=== PATIENT | female | born 1945 | race Caucasian/White ===

== ENCOUNTER → 2016-09-26 | Outpatient (CLI) | payer MEDICARE, BC ==
--- NOTE | 2016-09-26 15:56 | REPMRS ---
Patient History The patient states she had a clinical breast exam in 08/2016. Patient is postmenopausal. Benign US guided breast biopsy of the left breast, August 08, 2015. Benign lumpectomy of the right breast. Digital Woman Screen Mammo: September 26, 2016 - Exam #: [id number] Bilateral CC and MLO view(s) were taken. Technologist: Mary Rose, Technologist Prior study comparison: July 16, 2015, left breast digital mammo diagnostic unilateral, performed at [facility]. July 10, 2015, digital woman screen mammo performed at [facility]. FINDINGS: There are scattered fibroglandular densities. There has been no change in the appearance of the mammogram from the prior studies. There is a 1.7 cm nodule at 12 o'clock in the left breast unchanged from most recent prior mammography, previously noted to be a cyst. Anteriorly in the upper outer quadrant there is a needle biopsy marker clip in the same left breast. In the interval since the prior study, the patient underwent ultrasound-guided needle biopsy by Dr. Mercado with benign results. There is a mild amount of scattered fibroglandular density which is fairly symmetric. There is no interval development of dominant mass, architectural distortion, or clustered microcalcification suggestive of malignancy. ASSESSMENT: BI-RADS/ACR category 2 mammogram. Benign finding(s). Recommendation Routine screening mammogram in 1 year (for women over age 40). This mammogram was interpreted with the aid of an FDA-approved computer-aided dectection system. Electronically Signed By: Darien Daley MD 09/26/16 9131
== END ==
LOC: M WHC 14:39
PROVIDERS: ATTEND Nurse Practitioner Family
DX: Z12.31 Encounter for screening mammogram for malignant neoplasm of breast (principal); Z78.0 Asymptomatic menopausal state; Z12.12 Encounter for screening for malignant neoplasm of rectum; Z92.89 Personal history of other medical treatment
CPT/HCPCS: 82270; 87070; G0101; G0202

== ENCOUNTER → 2016-10-27 | Outpatient (CLI) | payer MEDICARE, BC ==
[2016-10-27 13:40] LABS: FREE T4 1.06 NG/DL (0.76-1.46)
== END ==
LOC: M WUC 10:32
PROVIDERS: ATTEND Family Medicine
DX: E03.9 Hypothyroidism, unspecified (principal)

== ENCOUNTER → 2017-05-29 | Outpatient (REF) | payer MEDICARE, BC ==
[2017-05-29 13:15] LABS: MEAN CORPUSCULAR HEMOGLOBIN 28.6 pg (27.0-33.0); MEAN CORPUSCULAR HGB CONC 32.9 g/dl (32.0-36.5); MEAN CORPUSCULAR VOLUME 86.9 fl (80.0-96.0); RED CELL DISTRIBUTION WIDTH 13.2 % (11.5-14.5)
[2017-05-29 13:41] LABS: ALBUMIN 3.5 GM/DL (3.2-5.2); ALBUMIN/GLOBULIN RATIO 1.03 (1.00-1.93); ALKALINE PHOSPHATASE 82 U/L (45-117); ALT/SGPT 15 U/L (12-78); ANION GAP 8 MEQ/L (8-16); AST/SGOT 11 U/L (15-37); BILIRUBIN,TOTAL 0.5 MG/DL (0.2-1.0); BLOOD UREA NITROGEN 12 MG/DL (7-18); CALCIUM LEVEL 8.9 MG/DL (8.8-10.2); CARBON DIOXIDE LEVEL 25 MEQ/L (21-32); CHLORIDE LEVEL 107 MEQ/L (98-107); CHOLESTEROL LEVEL 178 MG/DL (<200); CREATININE FOR GFR 0.62 MG/DL (0.55-1.02); FREE T4 0.92 NG/DL (0.76-1.46); GLOMERULAR FILTRATION RATE > 60.0 (>39); GLUCOSE, FASTING 94 MG/DL (83-110); POTASSIUM SERUM 4.7 MEQ/L (3.5-5.1); SODIUM LEVEL 140 MEQ/L (136-145); TOTAL PROTEIN 6.9 GM/DL (6.4-8.2); TRIGLYCERIDES LEVEL 93 MG/DL (<150)
== END ==
LOC: M SFHCPLAZ 10:12
PROVIDERS: ATTEND Family Medicine
DX: F32.9 Major depressive disorder, single episode, unspecified (principal); E78.5 Hyperlipidemia, unspecified; E03.9 Hypothyroidism, unspecified
CPT/HCPCS: 80053; 80061; 84439; 84443; 85027; G0463

== ENCOUNTER → 2017-12-15 | Outpatient (CLI) | payer MEDICARE, BC | LOC: M WHC 14:10 | DX: Z01.419 Encounter for gynecological examination (general) (routine) without abnormal findings (principal); Z12.31 Encounter for screening mammogram for malignant neoplasm of breast; R92.8 Other abnormal and inconclusive findings on diagnostic imaging of breast; Z78.0 Asymptomatic menopausal state; N63.21 Unspecified lump in the left breast, upper outer quadrant; M95.9 Acquired deformity of musculoskeletal system, unspecified; Z92.89 Personal history of other medical treatment; Z12.12 Encounter for screening for malignant neoplasm of rectum | CPT/HCPCS: 77067 ==

== ENCOUNTER → 2017-12-21 | Outpatient (CLI) | payer MEDICARE, BC | LOC: M RAD 10:47 | DX: N60.02 Solitary cyst of left breast (principal) | CPT/HCPCS: 76642 ==

== ENCOUNTER → 2018-06-18 | Outpatient (CLI) | payer MEDICARE, BC ==
[2018-06-18 13:44] LABS: ALBUMIN 3.6 GM/DL (3.2-5.2); ALBUMIN/GLOBULIN RATIO 1.16 (1.00-1.93); ALKALINE PHOSPHATASE 104 U/L (45-117); ALT/SGPT 21 U/L (12-78); ANION GAP 5 MEQ/L (8-16); AST/SGOT 11 U/L (7-37); BILIRUBIN,TOTAL 0.5 MG/DL (0.2-1.0); BLOOD UREA NITROGEN 21 MG/DL (7-18); CALCIUM LEVEL 9.3 MG/DL (8.8-10.2); CARBON DIOXIDE LEVEL 30 MEQ/L (21-32); CHLORIDE LEVEL 108 MEQ/L (98-107); CHOLESTEROL LEVEL 205 MG/DL (<200); FREE T4 0.94 NG/DL (0.76-1.46); GLOMERULAR FILTRATION RATE > 60.0 (>39); GLUCOSE, FASTING 99 MG/DL (70-100); HDL CHOLESTEROL 82 MG/DL (>40); LDL CHOLESTEROL 108 MG/DL (<100); NON-HDL-C 123 MG/DL; POTASSIUM SERUM 5.1 MEQ/L (3.5-5.1); SODIUM LEVEL 143 MEQ/L (136-145); THYROID STIMULATING HORMONE 0.032 uIU/ML (0.358-3.740); TOTAL PROTEIN 6.7 GM/DL (6.4-8.2); TRIGLYCERIDES LEVEL 76 MG/DL (<150)
[2018-06-18 13:46] LABS: TOTAL 25(OH) VITAMIN D 32.1 NG/ML (30.0-100.0)
== END ==
LOC: M WUC 10:25
DX: E03.9 Hypothyroidism, unspecified (principal); E78.5 Hyperlipidemia, unspecified; E55.9 Vitamin D deficiency, unspecified
CPT/HCPCS: 84443

== ENCOUNTER → 2018-12-16 | Outpatient (CLI) | payer MEDICARE, BC ==
[~2018-12-16] MED LIST: ALEV220T26 PO; DITR1TAB PO; LEVO75TA4 PO; VENL37TA PO; VENL75TA2 PO; VITA100067 PO
--- NOTE | 2018-12-16 15:02 | REPMRS ---
Patient History The patient states she had a clinical breast exam in 11/2018. Patient is postmenopausal. Benign US guided breast biopsy of the left breast, August 08, 2015. Benign lumpectomy of the right breast. No Hormone Replacement Therapy Digital Woman Screen Mammo: December 16, 2018 - Exam #: [id number] Bilateral CC and MLO view(s) were taken. Technologist: Mary Rose, Technologist Prior study comparison: December 15, 2017, digital woman screen mammo performed at [facility]. September 26, 2016, digital woman screen mammo performed at [facility]. July 10, 2015, digital woman screen mammo performed at [facility]. FINDINGS: There are scattered fibroglandular densities. There is a needle biopsy marker clip again noted in the left breast. Previously noted nodular densities have regressed in the left breast since the prior study. There has been no change in the appearance of the mammogram from the prior studies. There is a mild amount of scattered fibroglandular density which is fairly symmetric. There is no interval development of dominant mass, architectural distortion, or clustered microcalcification suggestive of malignancy. 3-D tomosynthesis shows no additional findings. Assessment: BI-RADS/ACR category 2 mammogram. Benign Findings. Recommendation Routine screening mammogram of both breasts in 1 year (for women over age 40). This patient's Lifetime Breast Cancer RIsk is estimated at 3.3 %. This mammogram was interpreted with the aid of an FDA-approved computer-aided dectection system. Electronically Signed By: Darien Daley MD 12/16/18 [id number]
== END ==
LOC: M WHC 13:10
PROVIDERS: ATTEND Nurse Practitioner Family
DX: Z01.419 Encounter for gynecological examination (general) (routine) without abnormal findings (principal); Z12.31 Encounter for screening mammogram for malignant neoplasm of breast; Z78.0 Asymptomatic menopausal state; Z86.018 Personal history of other benign neoplasm
CPT/HCPCS: 77063; 77067; G0101

== ENCOUNTER → 2018-12-23 | Outpatient (CLI) | payer MEDICARE, BC ==
--- NOTE | 2018-12-28 15:26 | REP ---
PELVIC ULTRASOUND: Real-time sonographic evaluation of pelvis performed utilizing transabdominal and endovaginal technique. Bladder measures 12.1 x 9.3 x 7.1 cm. Uterus measures 8.7 x 3.4 x 5.6 cm. Endometrial echocomplex is heterogeneous. Anterior and posterior daigle of the endometrium appear normal in thickness combining to measure 2 mm. However, there is mild endometrial fluid and there also appear to be two echogenic nodules in the endometrial cavity, one distally measuring 12 x 15 x 7 mm and one proximally 9 x 6 x 3 mm. There is also a 3 mm calcification in the endometrial cavity. Ovaries are normal in size and echotexture, right ovary measuring 1.7 x 0.9 x 1.3 cm, and left ovary 1.4 x 0.6 x 1.6 cm. There is no adnexal mass or free fluid. IMPRESSION: Mild fluid in the endometrial cavity as well as two oval nodules, as discussed above. Findings may represent endometrial polyps or neoplasm.
== END ==
LOC: M WHC 10:04
PROVIDERS: ATTEND Obstetrics & Gynecology
DX: N85.8 Other specified noninflammatory disorders of uterus (principal)

== ENCOUNTER → 2018-12-28 | Outpatient (CLI) | payer MEDICARE, BC | LOC: M WHC 13:16 | PROVIDERS: ATTEND Obstetrics & Gynecology | DX: N85.8 Other specified noninflammatory disorders of uterus (principal); R14.0 Abdominal distension (gaseous) ==

== ENCOUNTER → 2018-12-28 | Outpatient (CLI) | payer MEDICARE, BC ==
[2018-12-28 13:37] LABS: BLOOD UREA NITROGEN 13 MG/DL (7-18); CARBON DIOXIDE LEVEL 30 MEQ/L (21-32); CHLORIDE LEVEL 106 MEQ/L (98-107); CREATININE FOR GFR 0.81 MG/DL (0.55-1.30); FREE T4 1.19 NG/DL (0.76-1.46); GLOMERULAR FILTRATION RATE > 60.0 (>39); GLUCOSE, FASTING 89 MG/DL (70-100); POTASSIUM SERUM 4.9 MEQ/L (3.5-5.1); SODIUM LEVEL 140 MEQ/L (136-145); THYROID STIMULATING HORMONE 0.028 uIU/ML (0.358-3.740)
[2018-12-28 14:05] LABS: HEMOGLOBIN A1c 5.5 %
== END ==
LOC: M WUC 10:34
PROVIDERS: ATTEND Family Medicine
DX: E03.9 Hypothyroidism, unspecified (principal); R73.03 Prediabetes
CPT/HCPCS: 36415; 76830; 80048; 83036; 84439; 84443; G0463

== ENCOUNTER → 2019-02-22 | Outpatient (CLI) | payer MEDICARE, BC ==
--- NOTE | 2019-02-24 23:50 | ECGEPIP ---
[facility] Test Date: 2019-02-22 Pat Name: RAMON PENG Department: Room: - Gender: Female Field Staff Manager: ALESSANDRA : 1945 Requested By: ALYSSA Uribe Order Number: [id number] Reading MD: Mu Gonzalez Measurements Intervals Gilby Rate: 80 P: 59 KS: 177 QRS: 11 QRSD: 80 T: 65 QT: 385 QTc: 446 Interpretive Statements SINUS RHYTHM NONSPECIFIC ST & T-WAVE ABNORMALITY NO PRIOR TRACING IN THE SYSTEM Electronically Signed on 02-24-2019 23:50:01 EDT by Mu Gonzalez
== END ==
LOC: M EKG 13:32
PROVIDERS: ATTEND Anesthesiology
DX: Z01.818 Encounter for other preprocedural examination (principal); E03.9 Hypothyroidism, unspecified

== ENCOUNTER 2019-02-24 09:00 | Day surgery (SDC) | payer MEDICARE, BC ==
[~2019-02-24] VITALS: Ht 165.1 cm; Wt 95.3 kg
[~2019-02-24 09:00] MED LIST changes: +LR 1,000 ML IV SCH
[2019-02-24] MEDS ORDERED: MIDAZOLAM INJ 2 MG/2 ML VIAL (J2250) As Ordered ONE (11:54)
[2019-02-24] MEDS ORDERED: PROPOFOL 200 MG/20 ML VIAL As Ordered ONE (11:55)
[2019-02-24] MEDS ORDERED: fentaNYL 100 MCG/2 ML INJECTION (J3010) As Ordered ONE (11:55)
[2019-02-24] MEDS ORDERED: ONDANSETRON 4MG/2ML VIAL (J2405) As Ordered ONE (11:55)
[2019-02-24] MEDS ORDERED: LIDOCAINE 2% INJ 100 MG/5 ML SDV (FOR ANES.) As Ordered ONE (11:55)
[2019-02-24] MEDS ORDERED: dexameTHASONE 4 MG/ML 1ML VIAL (J1100) As Ordered ONE (11:55)
[2019-02-24] MEDS ORDERED: PERCOCET 5MG/325MG TAB PO PRN (13:15)
[2019-02-24] MEDS ORDERED: fentaNYL 100 MCG/2 ML INJECTION (J3010) IV PRN (13:15)
[2019-02-24] MEDS ORDERED: IBUPROFEN 600 MG TAB PO PRN (13:15)
[2019-02-24] MEDS ORDERED: LR 1,000 ML IV SCH ×2 (13:15)
[2019-02-24] MEDS ORDERED: ONDANSETRON 4MG/2ML VIAL (J2405) IV PRN (13:15)
--- NOTE | 2019-02-24 14:10 | RO ---
DATE OF PROCEDURE: 02/24/2019 PREPROCEDURE DIAGNOSIS: Postmenopausal bleeding. POSTPROCEDURE DIAGNOSIS: Postmenopausal bleeding with polyps. PROCEDURE: Dilation and curettage, hysteroscopy, MyoSure, resection of the polyps. SURGEON: Dr. Yelena Davila. MANGLE CATCHER: ANESTHESIA: Laryngeal mask anesthesia (LMA). DESCRIPTION OF PROCEDURE: Rowan was brought to the operating room where sufficient anesthesia was induced and she was prepped and draped and positioned in the usual sterile fashion. She has a known prolapse for which she typically uses a pessary on and off. But currently, she has not had that in so it did not interfere with the prep in any way. The bladder was emptied. The cervix was grasped with a single tooth tenaculum and carefully dilated in order to allow introduction of the hysteroscope, which was used to visualize the endometrial cavity at which point, several endometrial polyps and some sort of submucosal distention, which could have been fibroids, but on resection appeared to be polyps, were noted. The MyoSure reach was placed and we resected these in their entirety. We also sampled 360 degree sampling of the endometrium and then a curet was then placed as well and curettage was carried out. The procedure was then ended. ESTIMATED BLOOD LOSS: Maybe 5 mL. FLUID REPLACEMENT: Crystalloid. COMPLICATIONS: None. CONDITION AND DISPOSITION: Rowan tolerated the procedure well and was recovering in the recovery room in good condition.
[2019-02-24 14:55] VITALS: BP 173/93
== END 2019-02-24 15:25 | disposition home or self-care (01) ==
LOC: M SDC 09:00
PROVIDERS: ATTEND Obstetrics & Gynecology
DX: N85.01 Benign endometrial hyperplasia (principal); N95.0 Postmenopausal bleeding; E03.9 Hypothyroidism, unspecified; F41.9 Anxiety disorder, unspecified; F32.9 Major depressive disorder, single episode, unspecified; Z79.899 Other long term (current) drug therapy; Z88.0 Allergy status to penicillin; Z88.2 Allergy status to sulfonamides; Z88.8 Allergy status to other drugs, medicaments and biological substances
CPT/HCPCS: 58558; 88305; J1100; J2250; J2405; J3010

== ENCOUNTER → 2019-06-07 | Outpatient (CLI) | payer MEDICARE, BC ==
[~2019-06-07] MED LIST changes: -LR 1,000 ML IV SCH
[2019-06-07 17:49] LABS: HEMATOCRIT 42.3 % (36.0-47.0); HEMOGLOBIN 13.6 g/dl (12.0-15.5); MEAN CORPUSCULAR HEMOGLOBIN 28.3 pg (27.0-33.0); MEAN CORPUSCULAR HGB CONC 32.2 g/dl (32.0-36.5); MEAN CORPUSCULAR VOLUME 88.1 fl (80.0-96.0); PLATELET COUNT, AUTOMATED 249 10^3/uL (150-450)
[2019-06-07 17:52] LABS: ALBUMIN 3.6 GM/DL (3.2-5.2); ALT/SGPT 16 U/L (12-78); BILIRUBIN,TOTAL 0.7 MG/DL (0.2-1.0); BLOOD UREA NITROGEN 14 MG/DL (7-18); CARBON DIOXIDE LEVEL 29 MEQ/L (21-32); CHLORIDE LEVEL 104 MEQ/L (98-107); CHOLESTEROL LEVEL 190 MG/DL (<200); CHOLESTEROL RISK RATIO 2.835 (<5); CREATININE FOR GFR 0.85 MG/DL (0.55-1.30); FREE T4 0.94 NG/DL (0.76-1.46); GLOMERULAR FILTRATION RATE > 60.0 (>39); GLUCOSE, FASTING 85 MG/DL (70-100); HDL CHOLESTEROL 67 MG/DL (>40); LDL CHOLESTEROL 103 MG/DL (<100); NON-HDL-C 123 MG/DL; POTASSIUM SERUM 4.8 MEQ/L (3.5-5.1); SODIUM LEVEL 140 MEQ/L (136-145); TOTAL PROTEIN 6.9 GM/DL (6.4-8.2); TRIGLYCERIDES LEVEL 98 MG/DL (<150)
== END ==
LOC: M WUC 12:04
PROVIDERS: ATTEND Family Medicine
DX: F32.9 Major depressive disorder, single episode, unspecified (principal); E78.5 Hyperlipidemia, unspecified; E03.9 Hypothyroidism, unspecified

== ENCOUNTER → 2019-09-15 | Outpatient (CLI) | payer MEDICARE, BC ==
--- NOTE | 2019-09-15 17:23 | REP ---
PELVIC ULTRASOUND: Real-time sonographic evaluation of pelvis performed utilizing transabdominal and endovaginal technique. The bladder measures 6.7 x 5.3 x 8.4 cm. Uterus measures 7.1 x 3.0 x 4.8 cm. Endometrial thickness is 4 mm. There is no endometrial fluid collection, but there is a tiny cyst 4 x 2 x 5 mm in the endometrium. There is an oval hyperechoic nodule in the right adnexa 2.5 x 1.1 x 2.5 cm. There is a hypoechoic nodule in the left adnexa 2.7 x 2.1 x 2.0 cm. These findings are nonspecific. They could be ovarian in origin. No other mass is seen. No free fluid is seen. IMPRESSION: Endometrial thickness 4 mm. 5 mm endometrial cyst. Hyperechoic nodule right adnexa maximum diameter 2.5 cm. Hypoechoic nodule left adnexa, maximum diameter 2.7 cm. This could represent ovarian nodules. Further evaluation could be made with MRI of the pelvis. Electronically Signed by Wilton Maldonado MD 09/15/2019 07:10 P
== END ==
LOC: M RAD 15:37
PROVIDERS: ATTEND Obstetrics & Gynecology
DX: N95.0 Postmenopausal bleeding (principal)

== ENCOUNTER → 2019-11-08 | Outpatient (CLI) | payer MEDICARE, BC ==
--- NOTE | 2019-11-08 12:23 | REP ---
PA and lateral chest: Comparison is 12/02/2005. The lung lindsay are clear. The cardiac size is normal. The patricia, mediastinum, and skeletal structures are unremarkable except for thoracic scoliosis convex right scoliosis convex left at the thoracolumbar junction. This is unchanged. Impression: Negative PA and lateral chest except for scoliosis. Electronically Signed by Wilton Mcmullen MD 11/08/2019 12:15 P
== END ==
LOC: M ADAMS 11:05
PROVIDERS: ATTEND Family Medicine
DX: M41.9 Scoliosis, unspecified (principal); R06.09 Other forms of dyspnea
CPT/HCPCS: 71046; 80053; 84439; 84443; 85027; 93005; G0463

== ENCOUNTER → 2019-11-08 | Outpatient (REF) | payer MEDICARE, BC ==
[2019-11-08 13:47] LABS: HEMATOCRIT 41.4 % (36.0-47.0); HEMOGLOBIN 13.7 g/dl (12.0-15.5); MEAN CORPUSCULAR HEMOGLOBIN 28.3 pg (27.0-33.0); MEAN CORPUSCULAR HGB CONC 33.1 g/dl (32.0-36.5); MEAN CORPUSCULAR VOLUME 85.5 fl (80.0-96.0); PLATELET COUNT, AUTOMATED 241 10^3/uL (150-450); RED BLOOD COUNT 4.84 10^6/uL (4.00-5.40)
[2019-11-08 14:35] LABS: ALBUMIN 3.5 GM/DL (3.2-5.2); ALT/SGPT 17 U/L (12-78); BILIRUBIN,TOTAL 0.7 MG/DL (0.2-1.0); BLOOD UREA NITROGEN 17 MG/DL (7-18); CALCIUM LEVEL 9.6 MG/DL (8.8-10.2); CARBON DIOXIDE LEVEL 23 MEQ/L (21-32); CHLORIDE LEVEL 113 MEQ/L (98-107); CREATININE FOR GFR 0.71 MG/DL (0.55-1.30); FREE T4 1.77 NG/DL (0.76-1.46); GLOMERULAR FILTRATION RATE > 60.0 (>39); GLUCOSE, FASTING 103 MG/DL (70-100); POTASSIUM SERUM 4.3 MEQ/L (3.5-5.1); SODIUM LEVEL 142 MEQ/L (136-145); THYROID STIMULATING HORMONE 0.005 uIU/ML (0.358-3.740); TOTAL PROTEIN 6.9 GM/DL (6.4-8.2)
== END ==
LOC: M SFHCADAM 10:56
PROVIDERS: ATTEND Family Medicine
DX: R06.09 Other forms of dyspnea (principal); E03.9 Hypothyroidism, unspecified

== ENCOUNTER → 2019-12-27 | Outpatient (REF) | payer MEDICARE, BC ==
[~2019-12-27] MED LIST changes: +HM V4000 PO; +MEGE20TA3 PO
[2019-12-27 17:31] LABS: FREE T4 1.19 NG/DL (0.76-1.46); THYROID STIMULATING HORMONE 0.025 uIU/ML (0.358-3.740)
== END ==
LOC: M SFHCADAM 14:41
PROVIDERS: ATTEND Family Medicine
DX: E03.9 Hypothyroidism, unspecified (principal)
CPT/HCPCS: 84439; 84443; G0463

== ENCOUNTER → 2020-01-09 | Outpatient (CLI) | payer MEDICARE, BC ==
[~2020-01-09] MED LIST changes: +NAPR220C23 PO; +VITAD1000T PO
== END ==
LOC: M LABSMTC 11:00
PROVIDERS: ATTEND Anesthesiology
DX: Z01.818 Encounter for other preprocedural examination (principal); Z11.59 Encounter for screening for other viral diseases
CPT/HCPCS: C9803; U0003

== ENCOUNTER 2020-01-12 06:11 | Day surgery (SDC) | payer MEDICARE, BC ==
[~2020-01-12] VITALS: Ht 165.1 cm; Wt 83.9 kg
[2020-01-12] MEDS: LEVOTHYROXINE 50MCG TABLET (0.05MG) PO SCH (06:00)
[2020-01-12 06:43] LABS: HEMATOCRIT 39.8 % (36.0-47.0); HEMOGLOBIN 13.4 g/dl (12.0-15.5); MEAN CORPUSCULAR HGB CONC 33.7 g/dl (32.0-36.5); MEAN CORPUSCULAR VOLUME 83.3 fl (80.0-96.0); PLATELET COUNT, AUTOMATED 249 10^3/uL (150-450); RED BLOOD COUNT 4.78 10^6/uL (4.00-5.40); WHITE BLOOD COUNT 6.9 10^3/uL (4.0-10.0)
[2020-01-12] MEDS ORDERED: LR 1,000 ML IV ONE (07:00)
[2020-01-12] MEDS ORDERED: propofoL 200 MG/20 ML VIAL As Ordered ONE (07:18)
[2020-01-12] MEDS ORDERED: ROCURONIUM BROMIDE 50 MG/5 ML VIAL As Ordered ONE (07:18)
[2020-01-12] MEDS ORDERED: SUCCINYLCHOLINE 100 MG/5 ML SYRINGE (J0330) As Ordered ONE (07:18)
[2020-01-12] MEDS ORDERED: LIDOCAINE 2% 100MG/5ML SDV (FOR ANES.) As Ordered ONE (07:18)
[2020-01-12] MEDS ORDERED: fentaNYL 250 MCG/5 ML INJECTION (J3010) As Ordered ONE (07:18)
[2020-01-12] MEDS ORDERED: MIDAZOLAM INJ 2MG/2ML VIAL (J2250 PER 1MG) As Ordered ONE (07:20)
[2020-01-12] MEDS ORDERED: ceFAZolin SOD 2 GM in IV 1 EA IV ONE (07:30)
[2020-01-12] MEDS ORDERED: ACETAMINOPHEN 1000MG 100ML IV BTL (OFIRMEV) (J0131 PER 10MG) As Ordered ONE (08:15)
[2020-01-12] MEDS ORDERED: KETOROLAC 60 MG/2 ML VIAL As Ordered ONE (08:15)
[2020-01-12] MEDS ORDERED: dexameTHASONE 4 MG/ML 1ML VIAL (J1100 PER 1MG) As Ordered ONE (08:15)
[2020-01-12] MEDS ORDERED: ONDANSETRON 4MG/2ML VIAL As Ordered ONE (08:15)
[2020-01-12] MEDS: VITAMIN D 1,000 INTERNATIONAL UNITS TABLET PO SCH (09:00)
[2020-01-12] MEDS ORDERED: VENLAFAXINE **XR** 75MG CAPSULE PO SCH ×2 (09:00→21:00)
[2020-01-12] MEDS ORDERED: HYDROmorphone HCL 2 MG/ML 1ML VIAL (J1170) As Ordered ONE (09:33)
[2020-01-12] MEDS ORDERED: SUGAMMADEX SODIUM 500 MG/5 ML VIAL (BRIDION) As Ordered ONE (09:52)
[2020-01-12] MEDS ORDERED: ONDANSETRON 4MG/2ML VIAL IV PRN (11:45)
[2020-01-12] MEDS ORDERED: EPIDURAL/PCA KEYS XX PRN (11:45)
[2020-01-12] MEDS ORDERED: fentaNYL 100 MCG/2 ML INJECTION (J3010) IV PRN (11:45)
[2020-01-12] MEDS ORDERED: MORPHINE 1MG/ML IN 0.9% NACL 100ML IV BAG IV PRN (11:45)
[2020-01-12] MEDS ORDERED: IBUPROFEN 600 MG TAB PO PRN (11:45)
[2020-01-12] MEDS ORDERED: oxyCODONE 5MG TAB PO PRN (11:45)
[2020-01-12] MEDS ORDERED: LR 1,000 ML IV SCH (11:45)
[2020-01-12] MEDS ORDERED: NALBUPHINE HCL 10 MG/ML AMP (J2300) IV PRN (11:45)
[2020-01-12] MEDS ORDERED: diphenhydrAMINE 50MG/ML VIAL (J1200) IV PRN (11:45)
[2020-01-12] MEDS: LR 1,000 ML IV SCH ×2 (11:45→19:30)
[2020-01-12] MEDS ORDERED: NS 1,000 ML IV SCH (11:45)
[2020-01-12] MEDS ORDERED: NALOXONE INJ 0.4MG/1ML VIAL (J2310 PER 1MG) IV PRN (11:45)
[2020-01-12 13:20] VITALS: BP 147/87
[2020-01-12 13:35] VITALS: BP 148/83
[2020-01-12 14:30] VITALS: BP 178/92
[2020-01-12 15:20] VITALS: BP 155/93
[2020-01-12] MEDS: oxyBUTYnin *DITROPAN XL* 5 MG TABCR PO SCH (18:34)
[2020-01-12 20:00] VITALS: BP 157/94
[2020-01-12 22:30] VITALS: BP 164/85
[2020-01-12] MEDS ORDERED: PROMETHAZINE INJ 25 MG/ML VIAL (J2550) IV ONE (23:15)
[2020-01-13 01:00] VITALS: BP 127/58
[2020-01-13] MEDS: LR 1,000 ML IV SCH (02:51)
[2020-01-13 04:30] VITALS: BP 137/78
[2020-01-13] MEDS ORDERED: NORCO, ANEXSIA 5/325MG TABLET (HYDROcodone/ACETAMINOPHEN) PO PRN (06:00)
[2020-01-13] MEDS: LEVOTHYROXINE 50MCG TABLET (0.05MG) PO SCH (06:48)
[2020-01-13 07:18] VITALS: BP 156/78
[2020-01-13 07:36] LABS: HEMATOCRIT 32.9 % (36.0-47.0); HEMOGLOBIN 11.1 g/dl (12.0-15.5); MEAN CORPUSCULAR HEMOGLOBIN 28.6 pg (27.0-33.0); MEAN CORPUSCULAR HGB CONC 33.7 g/dl (32.0-36.5); MEAN CORPUSCULAR VOLUME 84.8 fl (80.0-96.0); PLATELET COUNT, AUTOMATED 221 10^3/uL (150-450); RED BLOOD COUNT 3.88 10^6/uL (4.00-5.40); WHITE BLOOD COUNT 12.2 10^3/uL (4.0-10.0)
[2020-01-13 08:01] VITALS: BP 156/78
[2020-01-13] MEDS: oxyBUTYnin *DITROPAN XL* 5 MG TABCR PO SCH (09:44)
[2020-01-13] MEDS: VITAMIN D 1,000 INTERNATIONAL UNITS TABLET PO SCH (09:45)
--- NOTE | 2020-01-17 11:03 | RO ---
DATE OF PROCEDURE: 01/12/2020 PREPROCEDURE DIAGNOSIS: Symptomatic prolapse, hyperplasia history and recurrent postmenopausal bleeding. POSTPROCEDURE DIAGNOSIS: Symptomatic prolapse, hyperplasia history and recurrent postmenopausal bleeding. PROCEDURE: Laparoscopic assisted vaginal hysterectomy with bilateral salpingo-oophorectomy, sacrospinous suspension, anterior and posterior repair, cystourethroscopy, and bladder biopsies. SURGEON: Dr. Yelena Davila SUPPLY CHAIN ANALYST: None. ANESTHESIA: General endotracheal anesthesia. SPECIMENS: Uterus, ovaries, tubes and some redundant vaginal tissue, not all of which went for path since it is no longer apparently required. DESCRIPTION OF PROCEDURE: Rowan was brought to the operating room where sufficient general endotracheal anesthesia was induced. She was prepped, draped and positioned in the usual sterile fashion. Uterine manipulator was placed after the uterus was sounded to 8 and the Valverde with the ability to backfill was placed. Attention was then turned to the abdomen. A transverse semilunar incision was made below the umbilicus. We ran into a hernia sac. We opened the sac. We confirmed there was no bowel in it. We did not make a plan for mesh, but just went to the adjacent fascia. We did not disconnect inferior to the umbilicus. There was a little omentum stuck there. We just worked around this. There was no bowel stuck there. The patient really did not have any symptoms, just a little scar tissue there. We made sure that we had not injured anything. A long standing thing for this 74-year-old woman who really has no symptoms from it. We then went ahead with the laparoscopic portion of the procedure. Using the uterine manipulator, we elevated the uterus over tubes and starting at the infundibulopelvic ligament carefully used the bipolar Enseal dissector to cauterize, transect and ligate the infundibulopelvic ligaments, working through the broad at the superior aspect of the mesentery of the tubes. We worked up to the round ligaments, carefully cauterized and transected them as well. Then, used the cold scissors to get down to the superior aspect of what was remaining of the inferior aspect of the broad ligament so the cephalad portion closest to the round ligament that had already been transected was carefully cut with the scissors and then the anterior aspect of the peritoneum creating the bladder flap. It was dissected just with cold scissors. At this point, we had a mobile uterus with freed ovaries and tubes. The patient absolutely wanted to guarantee removal of ovaries and tubes, which with her history of hyperplasia and recurrent bleeding despite Megace was fairly reasonable, so we made sure to get the ovaries and tubes free. Then, we turned our attention to the vaginal portion of the case. Of course, the instruments were removed at the top. Working vaginally, the uterine manipulator was removed. The [place]on retractor was placed with curved Bev anteriorly and then single tooth tenacula placed on the anterior and posterior aspect of the cervix and a circumferential incision was made around the base of the cervix. Long standing prolapse had created some level of hyperplasia of the cervix, but we were able to work around this and still find the planes. She also had an extremely large cystocele, but again we were able to avoid injury to the bladder. We carefully dissected anteriorly and posteriorly entering the peritoneum posteriorly and dissecting anterior to the level where the bladder flap had already been dissected from above. We clamped the cardinal ligaments bilaterally using the d' Noriega clamps and then transected and ligated them using #0 Vicryl suture which was used throughout this portion of the case. Then, continued our dissection through the uterosacrals which were quite attenuated and really not very well developed and carefully clamped, transected and ligated, and held for later resecuring to the cuff, but there was not much strength left in those. Then continued our dissection through the uterine vasculature until we had reached the dissection we had already started from above. The uterus with the attached ovaries and tubes was delivered. The pedicles were carefully evaluated. Good hemostasis was confirmed. Went ahead because of the large defect anteriorly did a pursestring closure and incorporated the uterosacrals as well. Having the peritoneum closed, we went ahead and dissected anteriorly through that large cystocele and did an anterior repair with #2-0 Vicryl with multiple layers to close off that defect and then there had been so much dissection there we went ahead and did the cysto at this point to confirm absence of injury to the bladder and normal ureteral function because we had already manipulated the bladder quite a bit. On the cysto, we did notice either a polypoid lesion or a bruise over the anterior aspect, the ventral aspect of the bladder, so this was not near the dissection for the cystocele repair. We went ahead and biopsied that and sent it. It is not clear to me whether this is simply bruising from the retractor, but it was not in a sort of squared off shape as you sometimes see. There was a little raised aspect to it, not anywhere near the trigone or the dissection that we were doing. Typically, we would not see an alternate side injury without the proximal side injury, so we went ahead and biopsied it and sent that to the pathologist as well. We then having confirmed that we did not have an injury to the bladder with our dissection and that we had supported that cystocele well and had normal ureteral jets in this patient who had already taken easily to see those, went ahead and turned our attention to the posterior dissection. We dissected out to the right sacrospinous ligament. Two ANCHOSURE anchors were placed, each of those anchors had two #2-0 Maxon, so we had a four #2-[address] We used those for four point suspension of the vaginal apex. As I said, we had already done an anterior repair. After we brought those down, we cystoscoped her again, confirmed again that we had normal ureteral jets and lack of suture in the bladder and of course we were able to see the previous biopsy site and confirm that there was no untoward bleeding. We then turned our attention to the posterior repair with an inverted triangle of tissue dissected away from the perineal body and then the rectovaginal septum palpated. There was a defect in the patient's right side. We made sure that we dissected up to that point and over sewed that with #2-0 Vicryl, trimming any redundant vaginal tissue as needed. Then, we resupported the perineal body and the genital hiatus and closed the vaginal portion of this with #2-0 and the perineal portion with #0 Vicryl. We then placed a vaginal packing and of course the Valverde was still in place. We then turned our attention to closure of the wound up above. We went ahead and took the #0 Vicryl sutures that we had already placed. We did not have any findings vaginally that required repeat scoping, so we went ahead and closed the fascial layer, doing our best to reduce that hernia, but of course we did not put any mesh in or anything like that in this patient given her lack of symptomatology and the fact that she is 74. Went ahead and then closed the skin with #3-0 Vicryl with good approximation and hemostasis achieved at both layers. A dry sterile dressing was then applied. Estimated blood loss for the procedure was about 100 mL. Fluid replacement was crystalloid. Complications: None. Condition and Disposition: Rowan tolerated the procedure well and was recovering in the recovery room in good condition.
== END 2020-01-13 13:05 | disposition home or self-care (01) ==
LOC: M SDC 06:11 → M PED 13:05 → M SDC 01-13 13:05
PROVIDERS: ATTEND Obstetrics & Gynecology
DX: N95.0 Postmenopausal bleeding (principal); N72 Inflammatory disease of cervix uteri; N81.4 Uterovaginal prolapse, unspecified; E03.9 Hypothyroidism, unspecified; D64.9 Anemia, unspecified; F32.9 Major depressive disorder, single episode, unspecified; F41.9 Anxiety disorder, unspecified; Z87.891 Personal history of nicotine dependence; Z79.899 Other long term (current) drug therapy; Z88.0 Allergy status to penicillin; Z88.2 Allergy status to sulfonamides; Z88.8 Allergy status to other drugs, medicaments and biological substances; E78.49 Other hyperlipidemia
CPT/HCPCS: 36415; 52204; 57260; 57282; 58571; 85027; 86850; 86900; 86901; 88305; 88307; 96361; 96374; 96375; C1713; J0131; J0330; J0690; J1100; J1170; J1885; J2250; J2405; J3010

== ENCOUNTER 2020-01-21 13:38 | Emergency (ER) | payer MEDICARE, BC ==
[~2020-01-21] VITALS: Ht 165.1 cm; Wt 83.4 kg
[2020-01-21] MEDS ORDERED: HYDR-3713 PO (13:56)
[2020-01-21] MEDS ORDERED: IBUP-1022 PO (13:56)
[2020-01-21 14:12] LABS: BASO % 0.1 % (0.0-1.0); HEMATOCRIT 30.5 % (36.0-47.0); HEMOGLOBIN 10.1 g/dl (12.0-15.5); MEAN CORPUSCULAR HEMOGLOBIN 27.9 pg (27.0-33.0); MEAN CORPUSCULAR HGB CONC 33.1 g/dl (32.0-36.5); MEAN CORPUSCULAR VOLUME 84.3 fl (80.0-96.0); MONO # 0.4 10^3/uL (0.0-0.8); MONO % 5.5 % (0.0-5.0); NEUTROPHILS # 5.7 10^3/uL (1.5-8.5); PLATELET COUNT, AUTOMATED 289 10^3/uL (150-450); RED BLOOD COUNT 3.62 10^6/uL (4.00-5.40); WHITE BLOOD COUNT 7.1 10^3/uL (4.0-10.0)
[2020-01-21 14:25] LABS: INR 1.08; PROTHROMBIN TIME 13.7 SECONDS (11.8-14.0)
[2020-01-21 14:35] LABS: ALBUMIN 2.9 GM/DL (3.2-5.2); ALT/SGPT 21 U/L (12-78); BILIRUBIN,DIRECT < 0.1 MG/DL (0.0-0.2); BILIRUBIN,TOTAL 1.1 MG/DL (0.2-1.0); TOTAL PROTEIN 6.5 GM/DL (6.4-8.2)
[2020-01-21] MEDS ORDERED: ONDANSETRON 4MG/2ML VIAL IV ONE (14:45)
[2020-01-21] MEDS ORDERED: MORPHINE 2 MG/ML 1ML VIAL (J2270) IV ONE (14:45)
[2020-01-21 15:45] VITALS: BP 161/84
--- NOTE | 2020-01-24 11:01 | REP ---
REASON FOR EXAM: Abdominal pain. Assess for bowel obstruction. Preliminary report was given by Dr. Eckert. FINDINGS: KUB shows the intestinal gas pattern to be nonspecific. The organ silhouettes insofar as delineated are unremarkable. There is no evidence of free intraperitoneal air. IMPRESSION: Nonspecific. The stool pattern appears to be within normal limits. Electronically Signed by Alvarado Kennedy DO 01/24/2020 12:25 P
== END 2020-01-21 15:56 | disposition home or self-care (01) ==
LOC: M ED 13:38
DX: N93.9 Abnormal uterine and vaginal bleeding, unspecified (principal); Z98.890 Other specified postprocedural states; K59.00 Constipation, unspecified
CPT/HCPCS: 74018; 80047; 80076; 85025; 85610; 85730; 86850; 86900; 86901; 96374; 96375; 99284; J2270; J2405

== ENCOUNTER → 2020-01-26 | Outpatient (CLI) | payer MEDICARE, BC ==
[~2020-01-26] MED LIST changes: +HYDR-3713 PO; +IBUP-1022 PO
--- NOTE | 2020-01-26 12:23 | REPMRS ---
Patient History The patient states she had a clinical breast exam in December 2019.Benign US guided breast biopsy of the left breast, August 08, 2015. Benign lumpectomy of the right breast. No Hormone Replacement Therapy Digital Woman Screen Mammo: January 26, 2020 - Exam #: [id number] Bilateral CC and MLO view(s) were taken. Technologist: Oralia Mobley, Technologist Prior study comparison: December 16, 2018, bilateral digital woman screen mammo performed at [facility]. December 15, 2017, digital woman screen mammo performed at [facility]. September 26, 2016, digital woman screen mammo performed at [facility]. FINDINGS: There are scattered fibroglandular densities. The Volpara volumetric breast density category is: A. There is a stable nodular opacity in the superomedial quadrant of the left breast. The previously noted 17 mm by 28 mm mass in the left breast has regressed. There is a needle biopsy marker clip again noted in the left breast more anteriorly. There is a moderate amount of residual fibroglandular tissue which is fairly symmetric. There is no interval development of dominant mass, architectural distortion, or grouped microcalcification typical of malignancy. There has been no change in the appearance of the mammogram from the prior studies. 3-D tomosynthesis shows no additional findings. Assessment: BI-RADS/ACR category 2 mammogram. Benign Findings. Recommendation Routine screening mammogram of both breasts in 1 year (for women over age 40). This patient's Lifetime Breast Cancer RIsk is estimated at 3.0 %. This mammogram was interpreted with the aid of an FDA-approved computer-aided dectection system. Electronically Signed By: Darien Daley MD 01/26/20 3400
== END ==
LOC: M WHC 11:18
PROVIDERS: ATTEND Nurse Practitioner Family
DX: Z12.31 Encounter for screening mammogram for malignant neoplasm of breast (principal); Z86.018 Personal history of other benign neoplasm; N63.25 Unspecified lump in the left breast, overlapping quadrants
CPT/HCPCS: 77063; 77067; G0463

== ENCOUNTER → 2020-12-31 | Outpatient (CLI) | payer MEDICARE, BC ==
[~2020-12-31] MED LIST changes: +D31000TA2 PO; -VITAD1000T PO
[2020-12-31 12:27] LABS: HEMATOCRIT 43.9 % (36.0-47.0); MEAN CORPUSCULAR HEMOGLOBIN 27.3 pg (27.0-33.0); MEAN CORPUSCULAR HGB CONC 31.9 g/dl (32.0-36.5); MEAN CORPUSCULAR VOLUME 85.6 fl (80.0-96.0); PLATELET COUNT, AUTOMATED 238 10^3/uL (150-450); RED BLOOD COUNT 5.13 10^6/uL (4.00-5.40); WHITE BLOOD COUNT 6.3 10^3/uL (4.0-10.0)
[2020-12-31 14:08] LABS: ALBUMIN 3.6 GM/DL (3.2-5.2); ALT/SGPT 13 U/L (12-78); BILIRUBIN,TOTAL 0.8 MG/DL (0.2-1.0); BLOOD UREA NITROGEN 15 MG/DL (7-18); CALCIUM LEVEL 9.9 MG/DL (8.8-10.2); CARBON DIOXIDE LEVEL 29 MEQ/L (21-32); CHLORIDE LEVEL 104 MEQ/L (98-107); CHOLESTEROL LEVEL 177 MG/DL (<200); CHOLESTEROL RISK RATIO 2.424 (<5); CREATININE FOR GFR 0.72 MG/DL (0.55-1.30); FREE T4 1.05 NG/DL (0.76-1.46); GLOMERULAR FILTRATION RATE > 60.0 (>39); GLUCOSE, FASTING 89 MG/DL (70-100); HDL CHOLESTEROL 73 MG/DL (>40); LDL CHOLESTEROL 85 MG/DL (<100); NON-HDL-C 104 MG/DL; POTASSIUM SERUM 4.9 MEQ/L (3.5-5.1); SODIUM LEVEL 140 MEQ/L (136-145); THYROID STIMULATING HORMONE 0.068 uIU/ML (0.358-3.740); TOTAL PROTEIN 6.9 GM/DL (6.4-8.2); TRIGLYCERIDES LEVEL 97 MG/DL (<150)
[2020-12-31 18:36] LABS: HEMOGLOBIN A1c 5.3 %
== END ==
LOC: M WUC 11:25
PROVIDERS: ATTEND Family Medicine
DX: E03.9 Hypothyroidism, unspecified (principal); E78.5 Hyperlipidemia, unspecified; F32.9 Major depressive disorder, single episode, unspecified; R73.03 Prediabetes

== ENCOUNTER → 2021-01-30 | Outpatient (CLI) | payer MEDICARE, BC ==
--- NOTE | 2021-01-30 12:07 | REPMRS ---
Patient History The patient states she has not had a clinical breast exam in over a year. Patient is postmenopausal. Family history of breast cancer at age 50 or over in paternal half sister. Benign US guided breast biopsy of the left breast, August 08, 2015. Benign lumpectomy of the right breast. No Hormone Replacement Therapy Patient states no breast complaints. Patient has signed the MRS history sheet. Digital Woman Screen Mammo: January 30, 2021 - Exam #: [id number] Bilateral CC and MLO view(s) were taken. Technologist: Lori Burnett, Technologist Prior study comparison: January 26, 2020, bilateral digital woman screen mammo performed at [facility]. December 16, 2018, bilateral digital woman screen mammo performed at [facility]. Screening. Digital screening (2D) mammography was performed bilaterally in the CC and MLO projections. Additionally, breast tomosynthesis (3D mammography) was performed bilaterally in the CC and MLO projections. Todays exam was compared to the prior exams. By history, the patient has no complaints of a palpable breast abnormality or other significant breast complaints. The breasts are unchanged in size and shape. There are no haley-soft tissue densities or spiculated masses. There is no haley internal architectural distortion. Once again, stable benign appearing calcifications are seen.There are no suspicious haley-calcific clusters. Skin thickening or nipple retraction is not present. IMPRESSION: BI-RADS Category 2- Benign Findings. There is no evidence of malignant alteration of the breasts. Followup examination recommended in one year. The Volpara volumetric breast density category is B, there are scattered areas of fibroglandular density. This mammogram was read with the assistance of [facility],an FDA approved computer aided detection system for mammography. The lifetime Tyrer-Cuzick score is 4.0 % Negative x-ray reports should not delay surgical consultation if a dominant or clinically suspicious mass is present. Not all breast cancers can be identified by mammography. Therefore, we recommend that you continue to perform regular breast self-examination and physical examination and then promptly contact your physician of any concerns or changes. Adenosis and dense breasts may obscure an underlying neoplasm. Assessment: BI-RADS/ACR category 2 mammogram. Benign Findings. Recommendation Routine screening mammogram of both breasts in 1 year. Electronically Signed By: Alvarado Kennedy, 01/30/21 0230
== END ==
LOC: M WHC 09:35
PROVIDERS: ATTEND Advanced Practice Midwife
DX: Z01.419 Encounter for gynecological examination (general) (routine) without abnormal findings (principal); Z12.31 Encounter for screening mammogram for malignant neoplasm of breast; Z78.0 Asymptomatic menopausal state; Z86.018 Personal history of other benign neoplasm; R92.1 Mammographic calcification found on diagnostic imaging of breast
CPT/HCPCS: 77063; 77067; G0101; G0463

== ENCOUNTER → 2021-02-28 | Outpatient (REF) | payer MEDICARE, BC ==
[2021-02-28 13:35] LABS: BLOOD UREA NITROGEN 22 MG/DL (7-18); CALCIUM LEVEL 9.6 MG/DL (8.8-10.2); CARBON DIOXIDE LEVEL 28 MEQ/L (21-32); CHLORIDE LEVEL 107 MEQ/L (98-107); CREATININE FOR GFR 0.72 MG/DL (0.55-1.30); FREE T4 1.33 NG/DL (0.76-1.46); GLOMERULAR FILTRATION RATE > 60.0 (>39); GLUCOSE, FASTING 84 MG/DL (70-100); POTASSIUM SERUM 4.5 MEQ/L (3.5-5.1); SODIUM LEVEL 138 MEQ/L (136-145); THYROID STIMULATING HORMONE < 0.005 uIU/ML (0.358-3.740)
== END ==
LOC: M SFHCADAM 11:13
PROVIDERS: ATTEND Family Medicine
DX: E03.9 Hypothyroidism, unspecified (principal); I11.9 Hypertensive heart disease without heart failure
CPT/HCPCS: 80048; 84439; 84443; G0463

== ENCOUNTER → 2021-04-18 | Outpatient (REF) | payer MEDICARE, BC ==
[2021-04-18 14:55] LABS: THYROID STIMULATING HORMONE < 0.005 uIU/ML (0.358-3.740)
== END ==
LOC: M WUC 13:46
PROVIDERS: ATTEND Family Medicine
DX: E03.9 Hypothyroidism, unspecified (principal)

== ENCOUNTER → 2021-10-22 | Outpatient (CLI) | payer MEDICARE, BC | LOC: M WUC 15:00 | PROVIDERS: ATTEND Physician Assistant | DX: S46.811A Strain of other muscles, fascia and tendons at shoulder and upper arm level, right arm, initial encounter (principal); S46.111A Strain of muscle, fascia and tendon of long head of biceps, right arm, initial encounter; X58.XXXA Exposure to other specified factors, initial encounter; Y92.9 Unspecified place or not applicable ==

== ENCOUNTER → 2021-11-25 | Outpatient (CLI) | payer MEDICARE, BC ==
[~2021-11-25] MED LIST changes: +ALEV220T22 PO; +AMLO1TAB24; +AMLO1TAB24 PO; -D31000TA2 PO; +LEVO25TA5; +OXYB10TA23; +OXYB10TA23 PO; +SYNT25TA PO; +VALS1TAB66; +VALS1TAB66 PO; +VENL75CA47; +VENL75CA47 PO; +VITA100093 PO
[2021-11-25 16:16] LABS: BLOOD UREA NITROGEN 26 MG/DL (7-18); CALCIUM LEVEL 9.9 MG/DL (8.8-10.2); CARBON DIOXIDE LEVEL 31 MEQ/L (21-32); CHLORIDE LEVEL 105 MEQ/L (98-107); CREATININE FOR GFR 0.75 MG/DL (0.55-1.30); FREE T4 1.36 NG/DL (0.76-1.46); GLOMERULAR FILTRATION RATE > 60.0 (>39); GLUCOSE, FASTING 100 MG/DL (70-100); POTASSIUM SERUM 4.6 MEQ/L (3.5-5.1); SODIUM LEVEL 139 MEQ/L (136-145); THYROID STIMULATING HORMONE 0.009 uIU/ML (0.358-3.740)
[2021-11-25 17:14] LABS: HEMOGLOBIN A1c 5.4 %
== END ==
LOC: M WUC 14:30
PROVIDERS: ATTEND Family Medicine
DX: I11.9 Hypertensive heart disease without heart failure (principal); E03.9 Hypothyroidism, unspecified; R73.03 Prediabetes

== ENCOUNTER 2021-12-17 19:23 | Observation (INO) | payer MEDICARE, BC ==
[~2021-12-17] VITALS: Ht 165.1 cm; Wt 87.3 kg
[~2021-12-17 19:23] MED LIST changes: -ALEV220T22 PO; -AMLO1TAB24; -AMLO1TAB24 PO; -LEVO25TA5; -OXYB10TA23; -OXYB10TA23 PO; -SYNT25TA PO; -VALS1TAB66; -VALS1TAB66 PO; -VENL75CA47; -VENL75CA47 PO
[2021-12-17] MEDS ORDERED: LEVO25TA5 (19:44)
[2021-12-17] MEDS ORDERED: AMLO1TAB24 (19:44)
[2021-12-17] MEDS ORDERED: VALS1TAB66 (19:44)
[2021-12-17] MEDS ORDERED: OXYB10TA23 (19:44)
[2021-12-17] MEDS ORDERED: VENL75CA47 (19:44)
[2021-12-17 20:40] LABS: BASO % 0.3 % (0.0-1.0); HEMATOCRIT 42.1 % (36.0-47.0); HEMOGLOBIN 13.7 g/dl (12.0-15.5); MEAN CORPUSCULAR HEMOGLOBIN 27.3 pg (27.0-33.0); MEAN CORPUSCULAR HGB CONC 32.5 g/dl (32.0-36.5); MEAN CORPUSCULAR VOLUME 83.9 fl (80.0-96.0); MONO # 0.5 10^3/uL (0.0-0.8); MONO % 5.7 % (2.0-8.0); NEUTROPHILS # 7.7 10^3/uL (1.5-8.5); NEUTROPHILS % 82.8 % (36.0-66.0); PLATELET COUNT, AUTOMATED 268 10^3/uL (150-450); RED BLOOD COUNT 5.02 10^6/uL (4.00-5.40); WHITE BLOOD COUNT 9.3 10^3/uL (4.0-10.0)
[2021-12-17 20:51] LABS: INR 0.92; PROTHROMBIN TIME 12.8 SECONDS (12.7-14.5)
[2021-12-17 20:52] LABS: PARTIAL THROMBOPLASTIN TIME 30.5 SECONDS (25.9-37.0)
[2021-12-17] MEDS: VENLAFAXINE **XR** 75MG CAPSULE PO SCH (21:00)
[2021-12-17 21:14] LABS: MB/CK RELATIVE INDEX 2.38 (< OR =4)
[2021-12-17] MEDS ORDERED: MECLIZINE 25 MG TABLET PO ONE (21:55)
[2021-12-17] MEDS ORDERED: ONDANSETRON 4MG ORAL DISINTEGRATING TAB PO ONE (21:55)
[2021-12-18] MEDS ORDERED: ACETAMINOPHEN TAB 650MG DOSE (2X325MG) PO ONE (00:45)
[2021-12-18] MEDS ORDERED: amLODIPine 5 MG TAB PO ONE (01:15)
[2021-12-18] MEDS ORDERED: MECLIZINE 25 MG TABLET PO PRN ×2 (01:30→09:00)
[2021-12-18 02:10] LABS: RSV AMPLIFICATION NEGATIVE (NEGATIVE)
[2021-12-18] MEDS ORDERED: ONDANSETRON 4MG/2ML VIAL IV PRN (02:25)
[2021-12-18] MEDS ORDERED: LIDOCAINE 5% (LIDODERM) PATCH TD ONE ×2 (03:00→21:00)
[2021-12-18] MEDS ORDERED: carisoprodoL 350 MG TAB PO ONE (03:00)
[2021-12-18] MEDS ORDERED: SYNT25TA PO (03:20)
[2021-12-18] MEDS ORDERED: VENL75CA47 PO (03:20)
[2021-12-18] MEDS ORDERED: VALS1TAB66 PO (03:20)
[2021-12-18] MEDS ORDERED: ALEV220T22 PO (03:20)
[2021-12-18] MEDS ORDERED: OXYB10TA23 PO (03:20)
[2021-12-18] MEDS ORDERED: AMLO1TAB24 PO (03:20)
[2021-12-18] MEDS ORDERED: HOME MED LIST COMPLETE! XX SCH (03:25)
[2021-12-18] MEDS: NS 1,000 ML IV SCH ×2 (03:27→06:26)
[2021-12-18] MEDS: LEVOTHYROXINE 25MCG TABLET (0.025MG) PO SCH (05:37)
[2021-12-18] MEDS: VALSARTAN 80 MG TAB (DIOVAN) PO SCH (05:38)
[2021-12-18 05:56] VITALS: BP 142/82
[2021-12-18 08:00] VITALS: BP 147/76
[2021-12-18] MEDS: amLODIPine 5 MG TAB PO SCH (08:33)
[2021-12-18] MEDS: ENOXAPARIN 40MG/0.4ML SYRINGE (J1650 PER 10MG) SC SCH (08:33)
[2021-12-18] MEDS: oxyBUTYnin *DITROPAN XL* 5 MG TABCR PO SCH (08:33)
[2021-12-18] MEDS: VITAMIN D 1,000 INTERNATIONAL UNITS TABLET PO SCH (08:33)
[2021-12-18 08:58] LABS: BLOOD UREA NITROGEN 16 MG/DL (7-18); CALCIUM LEVEL 9.4 MG/DL (8.8-10.2); CARBON DIOXIDE LEVEL 25 MEQ/L (21-32); CHLORIDE LEVEL 108 MEQ/L (98-107); CREATININE FOR GFR 0.55 MG/DL (0.55-1.30); GLOMERULAR FILTRATION RATE > 60.0 (>39); GLUCOSE, FASTING 91 MG/DL (70-100); MAGNESIUM LEVEL 2.3 MG/DL (1.8-2.4); POTASSIUM SERUM 3.9 MEQ/L (3.5-5.1); SODIUM LEVEL 140 MEQ/L (136-145)
[2021-12-18] MEDS ORDERED: VALSARTAN 80 MG TAB (DIOVAN) PO SCH (09:00)
[2021-12-18 09:01] LABS: HEMATOCRIT 38.5 % (36.0-47.0); HEMOGLOBIN 12.7 g/dl (12.0-15.5); MEAN CORPUSCULAR HEMOGLOBIN 27.3 pg (27.0-33.0); MEAN CORPUSCULAR VOLUME 82.8 fl (80.0-96.0); PLATELET COUNT, AUTOMATED 234 10^3/uL (150-450); RED BLOOD COUNT 4.65 10^6/uL (4.00-5.40); WHITE BLOOD COUNT 7.8 10^3/uL (4.0-10.0)
[2021-12-18] MEDS ORDERED: PROHANCE 279.3MG/ML 5ML VIAL As Ordered ONE (11:44)
[2021-12-18] MEDS ORDERED: PROHANCE 279.3MG/ML 15ML VIAL As Ordered ONE (11:45)
[2021-12-18] MEDS ORDERED: MECL-86 PO (12:15)
[2021-12-18 14:01] VITALS: BP 134/65
[2021-12-18] MEDS: MECLIZINE 25 MG TABLET PO SCH ×3 (14:37→23:59)
[2021-12-18] MEDS: ACETAMINOPHEN TAB 650MG DOSE (2X325MG) PO PRN ×2 (14:54→21:49)
[2021-12-18] MEDS ORDERED: **NOTE PATIENT COMMENT** MISC XX ONE (15:00)
[2021-12-18 16:09] VITALS: BP 170/88
[2021-12-18] MEDS ORDERED: LABETALOL 100MG/20ML VIAL IV ONE (16:25)
[2021-12-18 18:04] VITALS: BP 130/78
[2021-12-18 20:00] VITALS: BP 137/69
[2021-12-18] MEDS: VENLAFAXINE **XR** 75MG CAPSULE PO SCH (21:49)
[2021-12-19] VITALS: BP 137/65
[2021-12-19 04:00] VITALS: BP 133/72
[2021-12-19 05:49] LABS: BASO % 0.4 % (0.0-1.0); EOS % 0.1 % (0.0-3.0); LYMPH # 1.7 10^3/uL (1.5-5.0); MEAN CORPUSCULAR HEMOGLOBIN 27.1 pg (27.0-33.0); MEAN CORPUSCULAR HGB CONC 32.4 g/dl (32.0-36.5); MEAN CORPUSCULAR VOLUME 83.7 fl (80.0-96.0); MONO # 0.6 10^3/uL (0.0-0.8); MONO % 8.2 % (2.0-8.0); NEUTROPHILS # 5.2 10^3/uL (1.5-8.5); PLATELET COUNT, AUTOMATED 249 10^3/uL (150-450); RED BLOOD COUNT 4.42 10^6/uL (4.00-5.40); WHITE BLOOD COUNT 7.5 10^3/uL (4.0-10.0)
[2021-12-19 06:07] LABS: BLOOD UREA NITROGEN 19 MG/DL (7-18); CALCIUM LEVEL 9.3 MG/DL (8.8-10.2); CARBON DIOXIDE LEVEL 27 MEQ/L (21-32); CHLORIDE LEVEL 109 MEQ/L (98-107); CREATININE FOR GFR 0.56 MG/DL (0.55-1.30); GLOMERULAR FILTRATION RATE > 60.0 (>39); GLUCOSE, FASTING 105 MG/DL (70-100); MAGNESIUM LEVEL 2.2 MG/DL (1.8-2.4); POTASSIUM SERUM 3.9 MEQ/L (3.5-5.1); SODIUM LEVEL 140 MEQ/L (136-145)
[2021-12-19] MEDS: LEVOTHYROXINE 25MCG TABLET (0.025MG) PO SCH (06:37)
[2021-12-19] MEDS: MECLIZINE 25 MG TABLET PO SCH ×2 (06:37→11:14)
[2021-12-19] MEDS: ACETAMINOPHEN TAB 650MG DOSE (2X325MG) PO PRN (06:41)
[2021-12-19 08:00] VITALS: BP 145/86
[2021-12-19 08:09] VITALS: BP 145/86
[2021-12-19] MEDS: VALSARTAN 80 MG TAB (DIOVAN) PO SCH (08:09)
[2021-12-19] MEDS: VITAMIN D 1,000 INTERNATIONAL UNITS TABLET PO SCH (08:09)
[2021-12-19] MEDS: oxyBUTYnin *DITROPAN XL* 5 MG TABCR PO SCH (08:09)
[2021-12-19] MEDS: amLODIPine 5 MG TAB PO SCH (08:09)
[2021-12-19] MEDS: ENOXAPARIN 40MG/0.4ML SYRINGE (J1650 PER 10MG) SC SCH (08:10)
[2021-12-19] MEDS ORDERED: **NOTE PATIENT COMMENT** MISC XX ONE (09:00)
[2021-12-19] MEDS ORDERED: MECL-86 PO (11:07)
== END 2021-12-19 15:49 | disposition home health service (06) ==
LOC: M ED 19:23 → M ED INP 19:24 → ENRESERV 12-18 04:39 → M PCU 12-18 05:46
PROVIDERS: ADMIT Internal Medicine; ATTEND Internal Medicine
DX: R42 Dizziness and giddiness (principal); G93.0 Cerebral cysts; I10 Essential (primary) hypertension; M25.511 Pain in right shoulder; M25.512 Pain in left shoulder; E78.5 Hyperlipidemia, unspecified; R29.6 Repeated falls; N32.81 Overactive bladder; F32.A Depression, unspecified; F41.9 Anxiety disorder, unspecified; J84.10 Pulmonary fibrosis, unspecified; B02.9 Zoster without complications; Z79.899 Other long term (current) drug therapy; Z79.1 Long term (current) use of non-steroidal anti-inflammatories (NSAID); Z88.0 Allergy status to penicillin; Z88.2 Allergy status to sulfonamides; Z88.8 Allergy status to other drugs, medicaments and biological substances; Z87.891 Personal history of nicotine dependence
CPT/HCPCS: 36415; 70450; 70544; 70551; 70552; 71045; 80047; 80048; 82550; 82553; 83735; 84484; 85025; 85027; 85610; 85730; 87631; 93005; 93041; 94760; 96361; 96372; 96374; 97112; 97116; 97161; 97164; 99285; A9576; G0378; J1650

== ENCOUNTER → 2021-12-24 | Outpatient (REF) | payer MEDICARE, BC ==
[~2021-12-24] MED LIST changes: +ALEV220T22 PO; +AMLO1TAB24; +AMLO1TAB24 PO; +LEVO25TA5; +MECL-86 PO; +OXYB10TA23; +OXYB10TA23 PO; +SYNT25TA PO; +VALS1TAB66; +VALS1TAB66 PO; +VENL75CA47; +VENL75CA47 PO
[2021-12-24 17:40] LABS: HEMOGLOBIN A1c 5.6 %
[2021-12-24 17:55] LABS: BLOOD UREA NITROGEN 19 MG/DL (7-18); C REACTIVE PROTEIN QUANTITATIV 4.66 MG/DL (0.00-0.30); CALCIUM LEVEL 9.8 MG/DL (8.8-10.2); CARBON DIOXIDE LEVEL 31 MEQ/L (21-32); CHLORIDE LEVEL 102 MEQ/L (98-107); CREATININE FOR GFR 0.67 MG/DL (0.55-1.30); FREE T4 1.22 NG/DL (0.76-1.46); GLOMERULAR FILTRATION RATE > 60.0 (>39); GLUCOSE, FASTING 108 MG/DL (70-100); POTASSIUM SERUM 4.2 MEQ/L (3.5-5.1); SODIUM LEVEL 137 MEQ/L (136-145); THYROID STIMULATING HORMONE 0.011 uIU/ML (0.358-3.740)
== END ==
LOC: M SFHCADAM 15:26
PROVIDERS: ATTEND Family Medicine
DX: M25.511 Pain in right shoulder (principal); M25.512 Pain in left shoulder; I11.9 Hypertensive heart disease without heart failure; E03.9 Hypothyroidism, unspecified; R73.03 Prediabetes

== ENCOUNTER → 2022-02-07 | Outpatient (CLI) | payer MEDICARE, BC ==
[2022-02-07 16:56] LABS: HEMOGLOBIN A1c 4.9 %
[2022-02-07 17:07] LABS: BLOOD UREA NITROGEN 26 MG/DL (7-18); C REACTIVE PROTEIN QUANTITATIV 0.62 MG/DL (0.00-0.30); CALCIUM LEVEL 9.9 MG/DL (8.8-10.2); CARBON DIOXIDE LEVEL 23 MEQ/L (21-32); CHLORIDE LEVEL 104 MEQ/L (98-107); CREATININE FOR GFR 0.81 MG/DL (0.55-1.30); GLOMERULAR FILTRATION RATE > 60.0 (>39); GLUCOSE, FASTING 98 MG/DL (70-100); POTASSIUM SERUM 4.6 MEQ/L (3.5-5.1); SODIUM LEVEL 137 MEQ/L (136-145)
== END ==
LOC: M WUC 11:27
PROVIDERS: ATTEND Family Medicine
DX: M35.3 Polymyalgia rheumatica (principal); I11.9 Hypertensive heart disease without heart failure; R73.03 Prediabetes

== ENCOUNTER → 2022-03-14 | Outpatient (CLI) | payer MEDICARE, BC | LOC: M WUC 13:48 | PROVIDERS: ATTEND Family Medicine | DX: M35.3 Polymyalgia rheumatica (principal) ==

== ENCOUNTER → 2022-05-09 | Outpatient (CLI) | payer MEDICARE, BC ==
[2022-05-09 16:28] LABS: HEMATOCRIT 41.6 % (36.0-47.0); HEMOGLOBIN 13.3 g/dl (12.0-15.5); MEAN CORPUSCULAR HEMOGLOBIN 29.2 pg (27.0-33.0); MEAN CORPUSCULAR VOLUME 91.4 fl (80.0-96.0); PLATELET COUNT, AUTOMATED 292 10^3/uL (150-450); RED BLOOD COUNT 4.55 10^6/uL (4.00-5.40)
[2022-05-09 17:04] LABS: ALBUMIN 3.6 GM/DL (3.2-5.2); ALT/SGPT 15 U/L (12-78); BILIRUBIN,TOTAL 0.5 MG/DL (0.2-1.0); BLOOD UREA NITROGEN 19 MG/DL (7-18); C REACTIVE PROTEIN QUANTITATIV 0.82 MG/DL (0.00-0.30); CALCIUM LEVEL 9.9 MG/DL (8.8-10.2); CARBON DIOXIDE LEVEL 28 MEQ/L (21-32); CHLORIDE LEVEL 102 MEQ/L (98-107); CREATININE FOR GFR 0.87 MG/DL (0.55-1.30); GLOMERULAR FILTRATION RATE > 60.0 (>39); GLUCOSE, FASTING 125 MG/DL (70-100); POTASSIUM SERUM 4.6 MEQ/L (3.5-5.1); SODIUM LEVEL 136 MEQ/L (136-145)
[2022-05-09 17:35] LABS: HEMOGLOBIN A1c 5.6 %
== END ==
LOC: M WUC 14:02
PROVIDERS: ATTEND Family Medicine
DX: M35.3 Polymyalgia rheumatica (principal); I11.9 Hypertensive heart disease without heart failure; R73.03 Prediabetes

== ENCOUNTER → 2022-06-13 | Outpatient (CLI) | payer MEDICARE, BC | LOC: M WHC 14:40 | PROVIDERS: ATTEND Nurse Practitioner Family | DX: Z12.31 Encounter for screening mammogram for malignant neoplasm of breast (principal) ==

== ENCOUNTER → 2022-07-14 | Outpatient (CLI) | payer MEDICARE, BC ==
[2022-07-14 19:17] LABS: BLOOD UREA NITROGEN 14 MG/DL (7-18); C REACTIVE PROTEIN QUANTITATIV 0.38 MG/DL (0.00-0.30); CALCIUM LEVEL 10.2 MG/DL (8.8-10.2); CARBON DIOXIDE LEVEL 28 MEQ/L (21-32); CHLORIDE LEVEL 101 MEQ/L (98-107); CREATININE FOR GFR 0.94 MG/DL (0.55-1.30); FREE T4 1.03 NG/DL (0.76-1.46); GLOMERULAR FILTRATION RATE > 60.0 (>39); GLUCOSE, FASTING 126 MG/DL (70-100); POTASSIUM SERUM 4.5 MEQ/L (3.5-5.1); SODIUM LEVEL 135 MEQ/L (136-145); THYROID STIMULATING HORMONE 0.361 uIU/ML (0.358-3.740)
== END ==
LOC: M WUC 13:32
PROVIDERS: ATTEND Family Medicine
DX: E03.9 Hypothyroidism, unspecified (principal); M35.3 Polymyalgia rheumatica

== ENCOUNTER → 2022-08-18 | Outpatient (CLI) | payer MEDICARE, BC | LOC: M WUC 14:04 | PROVIDERS: ATTEND Family Medicine | DX: M35.3 Polymyalgia rheumatica (principal) ==

== ENCOUNTER → 2022-09-11 | Outpatient (REF) | payer MEDICARE, BC | LOC: M SFHCADAM 11:14 | PROVIDERS: ATTEND Family Medicine | DX: M35.3 Polymyalgia rheumatica (principal) ==

== ENCOUNTER → 2022-12-24 | Outpatient (CLI) | payer MEDICARE, BC ==
[2022-12-24 15:20] LABS: HEMOGLOBIN 13.7 g/dl (12.0-15.5); MEAN CORPUSCULAR HEMOGLOBIN 29.1 pg (27.0-33.0); MEAN CORPUSCULAR HGB CONC 31.9 g/dl (32.0-36.5); MEAN CORPUSCULAR VOLUME 91.5 fl (80.0-96.0); PLATELET COUNT, AUTOMATED 277 10^3/uL (150-450); WHITE BLOOD COUNT 10.1 10^3/uL (4.0-10.0)
[2022-12-24 15:48] LABS: THYROID STIMULATING HORMONE 1.056 uIU/ML (0.55-4.78)
[2022-12-24 15:50] LABS: FREE T4 0.86 NG/DL (0.89-1.76)
[2022-12-24 15:51] LABS: ALBUMIN 3.4 G/DL (3.2-5.2); ALKALINE PHOSPHATASE 72 U/L (46-116); ALT/SGPT 11 U/L (7.0-40); AST/SGOT 10 U/L (<34); BILIRUBIN,TOTAL 0.5 MG/DL (0.3-1.2); BLOOD UREA NITROGEN 15 MG/DL (9-23); CALCIUM LEVEL 9.2 MG/DL (8.3-10.6); CARBON DIOXIDE LEVEL 28 MMOL/L (20-31); CHLORIDE LEVEL 102 MMOL/L (98-107); CREATININE FOR GFR 0.71 MG/DL (0.55-1.30); GLOMERULAR FILTRATION RATE > 60.0 (>39); GLUCOSE, FASTING 84 MG/DL (74-106); POTASSIUM SERUM 4.5 MMOL/L (3.5-5.1); SODIUM LEVEL 138 MMOL/L (136-145); TOTAL PROTEIN 6.3 G/DL (5.7-8.2)
[2022-12-24 16:51] LABS: HEMOGLOBIN A1c 5.4 % (4.0-6.0)
== END ==
LOC: M WUC 10:41
PROVIDERS: ATTEND Family Medicine
DX: M35.3 Polymyalgia rheumatica (principal); R73.03 Prediabetes; E03.9 Hypothyroidism, unspecified; I11.9 Hypertensive heart disease without heart failure

== ENCOUNTER → 2023-03-16 | Outpatient (REF) | payer MEDICARE, BC | LOC: M LABWUC 16:21 | PROVIDERS: ATTEND Family Medicine | DX: M35.3 Polymyalgia rheumatica (principal) ==

== ENCOUNTER 2023-06-01 14:59 | Emergency (ER) | payer MEDICARE, BC ==
[~2023-06-01] VITALS: Ht 165.1 cm; Wt 88.6 kg
[2023-06-01 19:06] LABS: RSV AMPLIFICATION NEGATIVE (NEGATIVE)
[2023-06-01] MEDS ORDERED: NS 1,000 ML IV ONE (20:00)
[2023-06-01] MEDS ORDERED: ONDANSETRON 4MG 2ML VIAL IV ONE (20:00)
[2023-06-01 21:05] LABS: BASO # 0.1 10^3/uL (0.0-0.2); BASO % 0.6 % (0.0-1.0); EOS % 0.1 % (0.0-3.0); HEMATOCRIT 51.3 % (36.0-47.0); HEMOGLOBIN 17.4 g/dl (12.0-15.5); LYMPH # 0.9 10^3/uL (1.5-5.0); LYMPH % 10.6 % (24.0-44.0); MEAN CORPUSCULAR HEMOGLOBIN 28.5 pg (27.0-33.0); MEAN CORPUSCULAR HGB CONC 33.9 g/dl (32.0-36.5); MONO # 0.8 10^3/uL (0.0-0.8); MONO % 9.9 % (2.0-8.0); NEUTROPHILS # 6.6 10^3/uL (1.5-8.5); NEUTROPHILS % 78.4 % (36.0-66.0); PLATELET COUNT, AUTOMATED 476 10^3/uL (150-450); RED BLOOD COUNT 6.11 10^6/uL (4.00-5.40); WHITE BLOOD COUNT 8.4 10^3/uL (4.0-10.0)
[2023-06-01 22:13] LABS: ALBUMIN 3.7 G/DL (3.2-5.2); BILIRUBIN,DIRECT 0.4 MG/DL (<0.4); BILIRUBIN,TOTAL 0.9 MG/DL (0.3-1.2); TOTAL PROTEIN 6.7 G/DL (5.7-8.2)
[2023-06-01] MEDS ORDERED: PROMETHAZINE 25MG/ML 1ML VIAL IV ONE (23:55)
[2023-06-02] MEDS ORDERED: ONDA4TAB6 PO (00:27)
[2023-06-02] MEDS ORDERED: ONDANSETRON 4MG ORAL DISINTEGRATING TAB PO ONE (00:30)
[2023-06-02 00:49] VITALS: BP 110/64; TEMP 97.2; O2SAT 97
[2023-06-02] MEDS ORDERED: ALIN500T2 PO ×3 (01:55→18:22)
== END 2023-06-02 00:50 | disposition home or self-care (01) ==
LOC: M ED 14:59
DX: K52.9 Noninfective gastroenteritis and colitis, unspecified (principal); I49.1 Atrial premature depolarization; I44.4 Left anterior fascicular block; I45.81 Long QT syndrome; Z88.0 Allergy status to penicillin; Z88.2 Allergy status to sulfonamides; Z88.8 Allergy status to other drugs, medicaments and biological substances; Z79.83 Long term (current) use of bisphosphonates; Z79.899 Other long term (current) drug therapy
CPT/HCPCS: 74019; 80047; 80076; 83605; 83690; 83735; 85025; 87507; 87631; 93005; 96361; 96374; 96375; 99284; J2405; J2550

== ENCOUNTER → 2023-06-10 | Outpatient (REF) | payer MEDICARE, BC ==
[~2023-06-10] MED LIST changes: +ALIN500T2 PO; +ONDA4TAB6 PO
[2023-06-10 17:40] LABS: HEMATOCRIT 42.6 % (36.0-47.0); HEMOGLOBIN 13.7 g/dl (12.0-15.5); MEAN CORPUSCULAR HEMOGLOBIN 28.8 pg (27.0-33.0); MEAN CORPUSCULAR HGB CONC 32.2 g/dl (32.0-36.5); MEAN CORPUSCULAR VOLUME 89.5 fl (80.0-96.0); PLATELET COUNT, AUTOMATED 326 10^3/uL (150-450); RED BLOOD COUNT 4.76 10^6/uL (4.00-5.40); WHITE BLOOD COUNT 7.1 10^3/uL (4.0-10.0)
[2023-06-10 18:22] LABS: HEMOGLOBIN A1c 5.4 % (4.0-6.0)
== END ==
LOC: M LABWUC 16:42
PROVIDERS: ATTEND Family Medicine
DX: R73.03 Prediabetes (principal); M35.3 Polymyalgia rheumatica

== ENCOUNTER → 2023-07-15 | Outpatient (CLI) | payer MEDICARE, BC ==
[2023-07-15 13:18] LABS: HEMATOCRIT 39.4 % (36.0-47.0); HEMOGLOBIN 12.6 g/dl (12.0-15.5); MEAN CORPUSCULAR HEMOGLOBIN 28.8 pg (27.0-33.0); MEAN CORPUSCULAR VOLUME 90.2 fl (80.0-96.0); PLATELET COUNT, AUTOMATED 303 10^3/uL (150-450); RED BLOOD COUNT 4.37 10^6/uL (4.00-5.40); WHITE BLOOD COUNT 8.9 10^3/uL (4.0-10.0)
[2023-07-15 13:26] LABS: ALBUMIN 3.5 G/DL (3.2-5.2); ALKALINE PHOSPHATASE 79 U/L (46-116); ALT/SGPT < 9 U/L (7.0-40); AST/SGOT 10 U/L (<34); BILIRUBIN,TOTAL 0.8 MG/DL (0.3-1.2); BLOOD UREA NITROGEN 13 MG/DL (9-23); CALCIUM LEVEL 9.6 MG/DL (8.3-10.6); CARBON DIOXIDE LEVEL 29 MMOL/L (20-31); CHLORIDE LEVEL 103 MMOL/L (98-107); CHOLESTEROL LEVEL 222 MG/DL (<200); CHOLESTEROL RISK RATIO 2.83 (<5); CREATININE FOR GFR 0.68 MG/DL (0.55-1.30); FREE T4 0.95 NG/DL (0.89-1.76); GLOMERULAR FILTRATION RATE > 60.0 (>39); GLUCOSE, FASTING 101 MG/DL (74-106); HDL CHOLESTEROL 78.3 MG/DL (>40); LDL CHOLESTEROL 122.7 MG/DL (<100); NON-HDL-C 143.7 MG/DL; POTASSIUM SERUM 4.1 MMOL/L (3.5-5.1); SODIUM LEVEL 140 MMOL/L (136-145); THYROID STIMULATING HORMONE 1.538 uIU/ML (0.55-4.78); TOTAL PROTEIN 6.6 G/DL (5.7-8.2); TRIGLYCERIDES LEVEL 105 MG/DL (<150)
[2023-07-15 14:09] LABS: HEMOGLOBIN A1c 5.1 % (4.0-6.0)
== END ==
LOC: M WUC 10:28
PROVIDERS: ATTEND Family Medicine
DX: R73.03 Prediabetes (principal); M35.3 Polymyalgia rheumatica; I11.9 Hypertensive heart disease without heart failure; E03.9 Hypothyroidism, unspecified; E78.5 Hyperlipidemia, unspecified

== ENCOUNTER → 2023-08-03 | Outpatient (REF) | payer MEDICARE, BC | LOC: M SFHCWAGY 17:19 | PROVIDERS: ATTEND Nurse Practitioner Family | DX: Z12.4 Encounter for screening for malignant neoplasm of cervix (principal) | CPT/HCPCS: 87624; G0123 ==

== ENCOUNTER → 2023-08-03 | Outpatient (CLI) | payer MEDICARE, BC | LOC: M WHC 14:04 | PROVIDERS: ATTEND Nurse Practitioner Family | DX: Z12.31 Encounter for screening mammogram for malignant neoplasm of breast (principal) ==

== ENCOUNTER → 2023-10-05 | Outpatient (CLI) | payer MEDICARE, BC ==
[~2023-10-05] MED LIST changes: +D3 S1CAP PO; +NETA2.5D2 OU; +PRED10TA2 PO
== END ==
LOC: M WHC 12:34
PROVIDERS: ATTEND Nurse Practitioner Family
DX: N63.12 Unspecified lump in the right breast, upper inner quadrant (principal); I11.9 Hypertensive heart disease without heart failure; M35.3 Polymyalgia rheumatica

== ENCOUNTER → 2023-10-05 | Outpatient (REF) | payer MEDICARE, BC ==
[~2023-10-05] MED LIST changes: -D3 S1CAP PO; -NETA2.5D2 OU; -PRED10TA2 PO
[2023-10-05 19:16] LABS: BLOOD UREA NITROGEN 19 MG/DL (9-23); CALCIUM LEVEL 9.4 MG/DL (8.3-10.6); CARBON DIOXIDE LEVEL 30 MMOL/L (20-31); CHLORIDE LEVEL 105 MMOL/L (98-107); CREATININE FOR GFR 0.65 MG/DL (0.55-1.30); GLOMERULAR FILTRATION RATE > 60.0 (>39); GLUCOSE, FASTING 121 MG/DL (74-106); POTASSIUM SERUM 4.3 MMOL/L (3.5-5.1); SODIUM LEVEL 139 MMOL/L (136-145)
== END ==
LOC: M LABWUC 17:18
PROVIDERS: ATTEND Family Medicine
DX: I11.9 Hypertensive heart disease without heart failure (principal); M35.3 Polymyalgia rheumatica

== ENCOUNTER → 2023-10-07 | Outpatient (CLI) | payer MEDICARE, BC ==
[~2023-10-07] MED LIST changes: +D3 S1CAP PO; +NETA2.5D2 OU; +PRED10TA2 PO
== END ==
LOC: M ADAMS 10:51
PROVIDERS: ATTEND Family Medicine
DX: R06.2 Wheezing (principal)

== ENCOUNTER → 2023-10-07 | Outpatient (REF) | payer MEDICARE, BC | LOC: M SFHCADAM 10:46 | PROVIDERS: ATTEND Family Medicine | DX: R06.2 Wheezing (principal) ==

== ENCOUNTER 2023-10-22 10:12 | Day surgery (SDC) | payer MEDICARE, BC ==
[~2023-10-22] VITALS: Ht 165.1 cm; Wt 91.9 kg
[~2023-10-22 10:12] MED LIST changes: +PHENYLEPHRINE 10% OPHTH SOL 5ML OS PRN
[2023-10-22] MEDS: PHENYLEPHRINE 2.5% OPHTH SOL 2ML OS SCH (10:24)
[2023-10-22] MEDS: LIDOCAINE 3.5 % 1ML OPHTH TOPICAL GEL OU ONE (10:24)
[2023-10-22] MEDS: TROPICAMIDE 1% OPHTH SOLN 15ML OS SCH (10:24)
[2023-10-22] MEDS: OFLOXACIN 0.3 % (OCUFLOX) OPTH SOL 5ML OS ONE (10:24)
[2023-10-22] MEDS: CYCLOPENTOLATE 1% OPHTH SOLN 2ML BTL OS SCH (10:24)
[2023-10-22] MEDS ORDERED: fentaNYL 100 MCG/2 ML INJECTION As Ordered ONE (11:12)
[2023-10-22] MEDS: BSS IRRIG/VANCO(10MG)/TOBRA(5MG)/EPINEPH(1:1000-0.5CC)500ML BAG-ORONLY As Ordered ONE (11:21)
[2023-10-22] MEDS: LIDOCAINE 1% SDV 5ML VIAL As Ordered ONE (11:21)
[2023-10-22] MEDS: CEFUROXIME 1MG/0.1ML INTRACAMERAL INJ As Ordered ONE (11:21)
[2023-10-22 11:40] VITALS: BP 129/73; TEMP 98; O2SAT 98
== END 2023-10-22 12:00 | disposition home or self-care (01) ==
LOC: M SDC 10:12
PROVIDERS: ATTEND Ophthalmology
DX: H25.12 Age-related nuclear cataract, left eye (principal); H40.1122 Primary open-angle glaucoma, left eye, moderate stage; I10 Essential (primary) hypertension; E03.9 Hypothyroidism, unspecified; Z79.899 Other long term (current) drug therapy; Z79.890 Hormone replacement therapy; Z90.710 Acquired absence of both cervix and uterus; Z90.49 Acquired absence of other specified parts of digestive tract; Z88.5 Allergy status to narcotic agent; Z88.0 Allergy status to penicillin; Z88.8 Allergy status to other drugs, medicaments and biological substances
CPT/HCPCS: 66991; C1783; J0697; J3010; V2632

== ENCOUNTER 2023-11-12 11:21 | Day surgery (SDC) | payer BC, MEDICARE ==
[~2023-11-12] VITALS: Ht 152.4 cm; Wt 92.1 kg
[~2023-11-12 11:21] MED LIST changes: +MIDAZOLAM INJ 2MG/2ML VIAL As Ordered ONE; +PHENYLEPHRINE 10% OPHTH SOL 5ML OD PRN; -PHENYLEPHRINE 10% OPHTH SOL 5ML OS PRN; +fentaNYL 100 MCG/2 ML INJECTION As Ordered ONE
[2023-11-12] MEDS: LIDOCAINE 3.5 % 1ML OPHTH TOPICAL GEL OU ONE (12:31)
[2023-11-12] MEDS: PHENYLEPHRINE 2.5% OPHTH SOL 2ML OD SCH (12:31)
[2023-11-12] MEDS: ATROPINE SULFATE 1% OPHTH SOLN 2ML BTL OD SCH (12:31)
[2023-11-12] MEDS: TROPICAMIDE 1% OPHTH SOLN 15ML OD SCH (12:31)
[2023-11-12] MEDS: OFLOXACIN 0.3 % (OCUFLOX) OPTH SOL 5ML OD ONE (12:31)
[2023-11-12] MEDS: BSS IRRIG/VANCO(10MG)/TOBRA(5MG)/EPINEPH(1:1000-0.5CC)500ML BAG-ORONLY As Ordered ONE (13:04)
[2023-11-12] MEDS: CEFUROXIME 1MG/0.1ML INTRACAMERAL INJ As Ordered ONE (13:04)
[2023-11-12] MEDS: LIDOCAINE 1% SDV 5ML VIAL As Ordered ONE (13:04)
[2023-11-12] MEDS: DUOVISC (0.50ML VISCOAT/0.85ML PROVISC) OPHTH KIT As Ordered ONE (13:04)
[2023-11-12 13:25] VITALS: BP 144/65; TEMP 97.9; O2SAT 97
== END 2023-11-12 13:48 | disposition home or self-care (01) ==
LOC: M SDC 11:21
PROVIDERS: ATTEND Ophthalmology
DX: H25.11 Age-related nuclear cataract, right eye (principal); H40.9 Unspecified glaucoma; I11.9 Hypertensive heart disease without heart failure; E03.9 Hypothyroidism, unspecified; E78.5 Hyperlipidemia, unspecified; R73.03 Prediabetes; F32.9 Major depressive disorder, single episode, unspecified; Z79.899 Other long term (current) drug therapy; Z79.890 Hormone replacement therapy; Z79.52 Long term (current) use of systemic steroids; Z90.49 Acquired absence of other specified parts of digestive tract
CPT/HCPCS: 66991; 92015; C1783; J0697; J2250; J3010; V2632

== ENCOUNTER → 2024-01-15 | Outpatient (CLI) | payer MEDICARE, BC ==
[~2024-01-15] MED LIST changes: -MIDAZOLAM INJ 2MG/2ML VIAL As Ordered ONE; -PHENYLEPHRINE 10% OPHTH SOL 5ML OD PRN; -fentaNYL 100 MCG/2 ML INJECTION As Ordered ONE
[2024-01-15 13:06] LABS: HEMATOCRIT 41.2 % (36.0-47.0); HEMOGLOBIN 13.2 g/dl (12.0-15.5); MEAN CORPUSCULAR HEMOGLOBIN 28.9 pg (27.0-33.0); MEAN CORPUSCULAR VOLUME 90.2 fl (80.0-96.0); PLATELET COUNT, AUTOMATED 311 10^3/uL (150-450); RED BLOOD COUNT 4.57 10^6/uL (4.00-5.40); WHITE BLOOD COUNT 8.4 10^3/uL (4.0-10.0)
[2024-01-15 13:39] LABS: ALBUMIN 3.6 G/DL (3.2-5.2); ALKALINE PHOSPHATASE 75 U/L (46-116); ALT/SGPT 9 U/L (7.0-40); AST/SGOT 9 U/L (<34); BLOOD UREA NITROGEN 22 MG/DL (9-23); CALCIUM LEVEL 9.2 MG/DL (8.3-10.6); CARBON DIOXIDE LEVEL 29 MMOL/L (20-31); CHLORIDE LEVEL 107 MMOL/L (98-107); CREATININE FOR GFR 0.76 MG/DL (0.55-1.30); GLOMERULAR FILTRATION RATE > 60.0 (>39); GLUCOSE, FASTING 94 MG/DL (74-106); POTASSIUM SERUM 4.5 MMOL/L (3.5-5.1); SODIUM LEVEL 141 MMOL/L (136-145); TOTAL PROTEIN 6.6 G/DL (5.7-8.2)
[2024-01-15 13:45] LABS: THYROID STIMULATING HORMONE 1.183 uIU/ML (0.55-4.78)
== END ==
LOC: M WUC 09:40
PROVIDERS: ATTEND Family Medicine
DX: I11.9 Hypertensive heart disease without heart failure (principal); E03.9 Hypothyroidism, unspecified; M35.3 Polymyalgia rheumatica

== ENCOUNTER 2024-02-04 07:21 | Day surgery (SDC) | payer MEDICARE, BC ==
[~2024-02-04] VITALS: Ht 165.1 cm; Wt 87.6 kg
[~2024-02-04 07:21] MED LIST changes: +ONDA-282 PO; -ONDA4TAB6 PO; +propofoL 200 MG/20 ML VIAL As Ordered ONE
[2024-02-04] MEDS: NS 1,000 ML IV ONE (07:45)
[2024-02-04 09:19] VITALS: TEMP 97
[2024-02-04 09:39] VITALS: BP 156/74; O2SAT 98
== END 2024-02-04 09:48 | disposition home or self-care (01) ==
LOC: M OPP 07:21
PROVIDERS: ATTEND Surgery
DX: Z12.11 Encounter for screening for malignant neoplasm of colon (principal); Z86.010 Personal history of colon polyps; K63.5 Polyp of colon; K57.30 Diverticulosis of large intestine without perforation or abscess without bleeding; E03.9 Hypothyroidism, unspecified; I10 Essential (primary) hypertension; Z79.52 Long term (current) use of systemic steroids; Z79.890 Hormone replacement therapy; Z79.899 Other long term (current) drug therapy; Z88.0 Allergy status to penicillin; Z88.2 Allergy status to sulfonamides; Z79.891 Long term (current) use of opiate analgesic

== ENCOUNTER → 2024-05-09 | Outpatient (CLI) | payer MEDICARE, BC ==
[~2024-05-09] MED LIST changes: -propofoL 200 MG/20 ML VIAL As Ordered ONE
[2024-05-09 17:59] LABS: BLOOD UREA NITROGEN 12 MG/DL (9-23); CARBON DIOXIDE LEVEL 28 MMOL/L (20-31); CHLORIDE LEVEL 106 MMOL/L (98-107); CREATININE FOR GFR 0.65 MG/DL (0.55-1.30); GLOMERULAR FILTRATION RATE > 60.0 (>39); GLUCOSE, FASTING 159 MG/DL (74-106); POTASSIUM SERUM 4.8 MMOL/L (3.5-5.1); SODIUM LEVEL 138 MMOL/L (136-145)
== END ==
LOC: M WUC 11:44
PROVIDERS: ATTEND Family Medicine
DX: I11.9 Hypertensive heart disease without heart failure (principal); M35.3 Polymyalgia rheumatica

== ENCOUNTER → 2024-08-15 | Outpatient (CLI) | payer MEDICARE, BC ==
[2024-08-15 13:41] LABS: HEMOGLOBIN 13.3 g/dl (12.0-15.5); MEAN CORPUSCULAR HEMOGLOBIN 28.9 pg (27.0-33.0); MEAN CORPUSCULAR HGB CONC 32.4 g/dl (32.0-36.5); MEAN CORPUSCULAR VOLUME 89.1 fl (80.0-96.0); PLATELET COUNT, AUTOMATED 268 10^3/uL (150-450); WHITE BLOOD COUNT 7.3 10^3/uL (4.0-10.0)
[2024-08-15 14:06] LABS: HEMOGLOBIN A1c 5.4 % (4.0-6.0)
[2024-08-15 14:12] LABS: THYROID STIMULATING HORMONE 1.998 uIU/ML (0.55-4.78)
[2024-08-15 14:14] LABS: ALBUMIN 3.3 G/DL (3.2-5.2); ALKALINE PHOSPHATASE 73 U/L (35-104); ALT/SGPT 9 U/L (7.0-40); AST/SGOT 9 U/L (<34); BILIRUBIN,TOTAL 0.7 MG/DL (0.3-1.2); BLOOD UREA NITROGEN 21 MG/DL (9-23); C REACTIVE PROTEIN QUANTITATIV 0.93 MG/DL (<1.0); CALCIUM LEVEL 9.9 MG/DL (8.3-10.6); CARBON DIOXIDE LEVEL 29 MMOL/L (20-31); CHLORIDE LEVEL 105 MMOL/L (98-107); CHOLESTEROL LEVEL 214 MG/DL (<200); CHOLESTEROL RISK RATIO 2.78 (<5); CREATININE FOR GFR 0.75 MG/DL (0.55-1.30); GLOMERULAR FILTRATION RATE > 60.0 (>39); GLUCOSE, FASTING 97 MG/DL (74-106); HDL CHOLESTEROL 76.9 MG/DL (>40); LDL CHOLESTEROL 116.1 MG/DL (<100); NON-HDL-C 137.1 MG/DL; POTASSIUM SERUM 4.2 MMOL/L (3.5-5.1); SODIUM LEVEL 140 MMOL/L (136-145); TOTAL PROTEIN 6.6 G/DL (5.7-8.2); TRIGLYCERIDES LEVEL 105 MG/DL (<150)
== END ==
LOC: M WUC 10:14
PROVIDERS: ATTEND Family Medicine
DX: E03.9 Hypothyroidism, unspecified (principal); I11.9 Hypertensive heart disease without heart failure; R73.03 Prediabetes; F32.9 Major depressive disorder, single episode, unspecified; M35.3 Polymyalgia rheumatica

== ENCOUNTER → 2024-08-22 | Outpatient (CLI) | payer MEDICARE, BC | LOC: M RAD 16:38 | PROVIDERS: ATTEND Family Medicine | DX: J84.10 Pulmonary fibrosis, unspecified (principal); R05.3 Chronic cough; J47.9 Bronchiectasis, uncomplicated ==

== ENCOUNTER → 2024-11-30 | Outpatient (CLI) | payer MEDICARE, BC ==
[2024-11-30 15:44] LABS: ALBUMIN 3.4 G/DL (3.2-5.2); ALKALINE PHOSPHATASE 74 U/L (35-104); ALT/SGPT 10 U/L (7.0-40); AST/SGOT 9 U/L (<34); BILIRUBIN,TOTAL 0.5 MG/DL (0.3-1.2); BLOOD UREA NITROGEN 21 MG/DL (9-23); C REACTIVE PROTEIN QUANTITATIV 0.82 MG/DL (<1.0); CALCIUM LEVEL 9.4 MG/DL (8.3-10.6); CARBON DIOXIDE LEVEL 30 MMOL/L (20-31); CHLORIDE LEVEL 106 MMOL/L (98-107); CHOLESTEROL LEVEL 161 MG/DL (<200); CHOLESTEROL RISK RATIO 2.56 (<5); CPK CREATINE PHOSPHOKINASE 47 U/L (34-145); CREATININE FOR GFR 0.84 MG/DL (0.55-1.30); GLOMERULAR FILTRATION RATE > 60.0 (>39); GLUCOSE, FASTING 99 MG/DL (74-106); HDL CHOLESTEROL 62.7 MG/DL (>40); LDL CHOLESTEROL 78.9 MG/DL (<100); NON-HDL-C 98.3 MG/DL; POTASSIUM SERUM 4.7 MMOL/L (3.5-5.1); SODIUM LEVEL 144 MMOL/L (136-145); TOTAL PROTEIN 6.6 G/DL (5.7-8.2); TRIGLYCERIDES LEVEL 97 MG/DL (<150)
[2024-11-30 15:45] LABS: FREE T4 1.03 NG/DL (0.89-1.76); THYROID STIMULATING HORMONE 1.898 uIU/ML (0.55-4.78)
== END ==
LOC: M WUC 10:26
PROVIDERS: ATTEND Family Medicine
DX: E03.9 Hypothyroidism, unspecified (principal); E78.5 Hyperlipidemia, unspecified; M35.3 Polymyalgia rheumatica

== ENCOUNTER → 2025-05-17 | Outpatient (REF) | payer MEDICARE, BC ==
[~2025-05-17] MED LIST changes: -IBUP-1022 PO; +IBUP600T42 PO
[2025-05-17 18:47] LABS: PLATELET COUNT, AUTOMATED 333 10^3/uL (150-450)
[2025-05-17 18:59] LABS: C REACTIVE PROTEIN QUANTITATIV 0.71 MG/DL (<1.0)
[2025-05-17 19:00] LABS: ALT/SGPT 9.0 U/L (7.0-40); AST/SGOT 14.0 U/L (<34); CALCIUM LEVEL 10.2 MG/DL (8.3-10.6); CARBON DIOXIDE LEVEL 30.0 MMOL/L (20-31); CHLORIDE LEVEL 102.0 MMOL/L (98-107); CHOLESTEROL LEVEL 180.0 MG/DL (<200); CHOLESTEROL RISK RATIO 2.25 (<5); CREATININE FOR GFR 0.8 MG/DL (0.55-1.30); GLOMERULAR FILTRATION RATE 74.4 (>32); LDL CHOLESTEROL 73.5 MG/DL (<100); NON-HDL-C 100.3 MG/DL; POTASSIUM SERUM 4.3 MMOL/L (3.5-5.1); SODIUM LEVEL 138.0 MMOL/L (136-145); TRIGLYCERIDES LEVEL 134.0 MG/DL (<150)
[2025-05-17 19:02] LABS: FREE T4 1.15 NG/DL (0.89-1.76)
== END ==
LOC: M SFHCADAM 14:08
PROVIDERS: ATTEND Family Medicine
DX: M35.3 Polymyalgia rheumatica (principal); E78.5 Hyperlipidemia, unspecified; E03.9 Hypothyroidism, unspecified